=== PATIENT | female | born 1960 | race Caucasian/White ===

== ENCOUNTER 2023-12-06 06:06 | Day surgery (SDC) | payer MEDICARE ==
[~2023-12-06 06:06] MED LIST: BETADINE 5% OPHTHALMIC 30 ML OP ONE; NON-FORMULARY ITEM OP ONE; cefUROXime sodium 0.005 GM in Sodium Chloride Flush 30 ML*** 0.5 ML IJ ONE
[2023-12-06] MEDS ORDERED: Epinephrine Preservative Free 1 MG/ML IJ ONE (06:07)
[2023-12-06 06:53] VITALS: RESP 16
[2023-12-06] MEDS ORDERED: Lactated Ringers 1,000 ML IV ONE (06:54)
[2023-12-06] MEDS: TETRACAINE 0.5% STERI-UNIT SOL OP ONE ×2 (07:05→07:25)
[2023-12-06] MEDS: Lactated Ringers 1,000 ML IV SCH (07:05)
[2023-12-06] MEDS: Ak-Dilate OPHTHALMIC*** 1.065 ML, Cyclogyl 1% OPHTH SOL 1.065 ML, GATIFLOXACIN 0.5% OPH... OP ONE (07:07)
[2023-12-06] MEDS ORDERED: Zofran 4 MG/2 ML VIAL IV PRN (08:00)
[2023-12-06] MEDS ORDERED: SUBLIMAZE 100 MCG/2 ML ONE (10:36)
[2023-12-06] MEDS ORDERED: Versed 2 MG/2 ML Injection ONE (10:36)
[2023-12-06] MEDS ORDERED: DIPRIVAN 200 MG/20 ML IV ONE (10:36)
[2023-12-06 11:14] VITALS: O2SAT 98
[2023-12-06 11:19] VITALS: BP 111/60; PULSE 77
[2023-12-06 11:24] VITALS: TEMP 98.1
[2023-12-06] MEDS: ACETAZOLAMIDE 250 MG TABLET PO ONE (11:25)
== END 2023-12-06 11:30 | disposition home or self-care (01) ==
LOC: SDC 06:06
PROVIDERS: ATTEND Ophthalmology
DX: H25.812 Combined forms of age-related cataract, left eye (principal); I10 Essential (primary) hypertension
CPT/HCPCS: 93005; C1780; J0171; J2250; J2704; J3010; A9270-GY

== ENCOUNTER 2024-01-03 08:21 | Day surgery (SDC) | payer MEDICARE ==
[~2024-01-03 08:21] MED LIST changes: +Lactated Ringers 1,000 ML IV ONE
[2024-01-03] MEDS: Lactated Ringers 1,000 ML IV SCH (08:48)
[2024-01-03] MEDS: Ak-Dilate OPHTHALMIC*** 1.065 ML, Cyclogyl 1% OPHTH SOL 1.065 ML, GATIFLOXACIN 0.5% OPH... OP ONE (08:51)
[2024-01-03] MEDS: TETRACAINE 0.5% STERI-UNIT SOL OP ONE ×2 (08:51→09:24)
[2024-01-03] MEDS ORDERED: Zofran 4 MG/2 ML VIAL IV PRN (10:00)
[2024-01-03] MEDS ORDERED: Epinephrine Preservative Free 1 MG/ML IJ ONE (10:15)
[2024-01-03] MEDS ORDERED: DIPRIVAN 200 MG/20 ML IV ONE (10:49)
[2024-01-03] MEDS ORDERED: Versed 2 MG/2 ML Injection ONE (10:49)
[2024-01-03] MEDS ORDERED: SUBLIMAZE 100 MCG/2 ML ONE (10:49)
[2024-01-03 11:22] VITALS: TEMP 97.7
[2024-01-03 11:24] VITALS: O2SAT 98
[2024-01-03] MEDS: ACETAZOLAMIDE 250 MG TABLET PO ONE (11:25)
[2024-01-03 11:29] VITALS: BP 112/59; PULSE 75; RESP 16
== END 2024-01-03 11:39 | disposition home or self-care (01) ==
LOC: SDC 08:21
PROVIDERS: ATTEND Ophthalmology
DX: H25.811 Combined forms of age-related cataract, right eye (principal)
CPT/HCPCS: C1780; J0171; J2250; J2704; J3010; A9270-GY